=== PATIENT | female | born 2000 | race Hispanic/Latino ===

== ENCOUNTER 2019-11-19 09:58 | Outpatient (CLI) | payer BC ==
--- NOTE | 2019-11-19 11:29 | CT ---
CT ABDOMEN AND PELVIS WITHOUT IV CONTRAST: Date: 11/19/2019 INDICATION: Left flank pain. No comparison. FINDINGS: Lung bases clear. Liver, spleen, and pancreas appear unremarkable on noncontrast study. Gallbladder is mildly distended. No evidence of pericholecystic edema. Some heterogeneity within the gallbladder lumen could represent sludge. Gallstones may not be apparent on CT. Adrenal glands normal. Review of kidneys show moderate left hydronephrosis. There is an obstructing 1.0 cm calcification in the proximal left ureter. There are nonobstructing calculi in the upper collecting structures of the left kidney. There is a 1. 0 cm calculus in the left renal pelvis near the UPJ. There is a 3.0 mm calculus in the lower pole col lecting structures of the left kidney. There are two or three tiny nonobstructing calculi in the upper collecting structures of the right ki dney which measure in the 1-2 mm range. Right ureter is unremarkable. Urinary bladder is mostly contracted, but appears unremarkable. Bowel loops unremarkable. Images through the pelvis show evidence of a right ovarian cyst measuring in the 2.5 cm range. Uterus and adnexa otherwise unremarkable. No free fluid. IMPRESSION: 1. A 1.0 cm obstructing calculus in the proximal left ureter. 2. Nonobstructing calculi in the upper collecting structures of both kidneys as described above. POS: [facility]
== END 2019-11-19 09:59 | disposition home or self-care (01) ==
LOC: BICCT 09:58
PROVIDERS: ATTEND Family Medicine
DX: R10.9 Unspecified abdominal pain (principal); R31.9 Hematuria, unspecified; N20.2 Calculus of kidney with calculus of ureter
CPT/HCPCS: 74176

== ENCOUNTER 2019-11-20 10:35 | Day surgery (SDC) | payer BC ==
[2019-11-20] MEDS ORDERED: Levofloxacin 500 mg/D5W 100 ml Premix Bag ONE (11:47)
[2019-11-20 12:05] LABS: PTT 28.2 SEC (22.9-36.1)
[2019-11-20 12:17] LABS: BHCG - Serum Negative (NEGATIVE); Pregs Control Background? CLEAR/WHITE (CLR/WHITE); Pregs Control Bar Appear? YES (CONTROL BAR)
--- NOTE | 2019-11-20 13:00 | RAD ---
Exam: One view abdomen HISTORY: Preprocedure exam. Renal calculi Correlation: 11/19/2019 CT FINDINGS: Nonspecific bowel gas pattern. No evidence of bowel distention or dilatation. Calcific density projects over the left renal silhouette, measuring 0.8 cm. Calcific density along th e left paraspinal region at the L3 level is presumed to be a ureteral calculus measuring 0.9 cm. No osseous abnormalities IMPRESSION: 1. Left ureteral calculus 2. Left renal calculus.
[2019-11-20] MEDS ORDERED: Midazolam HCl 2 mg/2 ml Vial ONE (13:44)
[2019-11-20] MEDS ORDERED: Fentanyl 100 MCG/2 ML VIAL ONE (13:44)
[2019-11-20] MEDS ORDERED: Lidocaine 2% Jelly 5 ML TUBE ONE (13:45)
--- NOTE | 2019-11-20 14:19 | RAD ---
Exam: Retrograde IVP Comparison none FINDINGS: 2 intraprocedural fluoroscopic images demonstrate retrograde opacification of the left intr arenal and extra renal collecting system. Mild dilatation of the intrarenal collecting system. Left ureteral stent is placed. Proximal pigtail is in the left renal pelvis. Distal pigtails in the urinar y bladder. IMPRESSION: Intraprocedural fluoroscopy as above
[2019-11-20] MEDS ORDERED: Phenazopyridine HCl 97.5 MG TABLET ONE (14:36)
[2019-11-20] MEDS ORDERED: Oxybutynin 5 MG TAB ONE (14:38)
--- NOTE | 2019-11-20 14:42 | OP ---
DATE OF PROCEDURE: 11/20/2019 PREOPERATIVE DIAGNOSES: 1. A 19-year-old female with left ureteral calculi at the level of L3-4, 10 mm; left renal pelvic stone, 10 mm; left lower pole calculi, 3 to 4 mm. 2. Right punctate renal calculi x2. POSTOPERATIVE DIAGNOSES: 1. A 19-year-old female with left ureteral calculi at the level of L3-4, 10 mm; left renal pelvic stone, 10 mm; left lower pole calculi, 3 to 4 mm. 2. Right punctate renal calculi x2. PROCEDURES PERFORMED: Cystoscopy, left retrograde pyelogram, 6 x 22 double-J ureteral stent placement with distal tail in situ. ANESTHESIA: General. COMPLICATIONS: None apparent. DISPOSITION: To recovery room in stable condition INDICATIONS FOR THE PROCEDURE AND HISTORY: Ms. Riggs is a 19-year-old female, who presented to my office today as a work-in due to left flank pain despite pain medication with large left ureteral calculi, renal calculi as above. We discussed options of medical expulsion therapy. However, due to significant discomfort, she desires to proceed with ureteral stent. Risks and complications and indications reviewed including, but not limited to, bleeding, pain, infection, injury to adjacent organs, urosepsis. She has been fully informed that we will proceed with staged ureteroscopy, laser lithotripsy when urine culture finalized. DESCRIPTION OF PROCEDURE: After an informed consent was signed, the patient was taken to the operating room, placed in a dorsal lithotomy position with the genital area prepped and draped in the usual surgical sterile fashion. A 21-Latvian cystoscope was utilized for cystoscopy, which demonstrated normal bladder mucosa. No stones seen within the bladder. The UOs were normal orthotopic position. A 5-Latvian open-ended catheter was utilized to intubate the left UO and a retrograde pyelogram performed. The stones were easily visualized on fluoroscopy. There was evidence of hydronephrosis proximal to the stone and with further retrograde, the stone may have migrated to the left mid to upper pole. A 0.035 Sensor wire was placed into the left upper pole and a 6 x 22 double-J ureteral stent was passed without difficulty. Distal tail was left in situ. Proximal coil was seen in the renal pelvis. Distal coil with adequate redundancy in the bladder was noted. She is discharged with ciprofloxacin, x10 days, tramadol 50 mg 1 to 2, oxybutynin 10 mg one p.o. daily for bladder spasm, Colace 100 mg b.i.d., Azo p.r.n. She will follow up with me next Sunday, if her final urine culture negative, we will proceed with staged ureteroscopy and laser lithotripsy next Sunday. Job ID: [id number]
[2019-11-20] MEDS ORDERED: HYDROcodone/Acetaminophen 5/325 mg Tablet ONE (15:29)
== END 2019-11-20 16:28 | disposition home or self-care (01) ==
LOC: SDC 10:35
PROVIDERS: ATTEND Urology
PROC: 0T768DZ Dilation of Right Ureter with Intraluminal Device, Via Natural or Artificial Opening Endoscopic (ICD-10-PCS; principal; 2019-11-20)
DX: N13.2 Hydronephrosis with renal and ureteral calculous obstruction (principal)
CPT/HCPCS: 36415; 74018; 74420; 84703; 85610; 85730; C1758; C1769; J1956; J2250; J3010

== ENCOUNTER 2019-11-26 06:34 | Day surgery (SDC) | payer BC ==
[2019-11-26] MEDS ORDERED: Iothalamate Meglumine 60% 30 ML VIAL FS ONE (07:42)
[2019-11-26] MEDS ORDERED: Sodium Chloride 0.9% 100 ML ONE (07:59)
[2019-11-26] MEDS ORDERED: cefTRIAXone\\ROCEPHIN 2 GM VIAL ONE (07:59)
--- NOTE | 2019-11-26 08:35 | RAD ---
RADIOGRAPH ABDOMEN 1 VIEW: DATE: 11/26/2019. TIME: 9:00 AM. HISTORY: A 19-year-old female with left calculus of kidney. COMPARISON: 11/20/2019. FINDINGS: There is a new left ureteral stent. The previously mentioned 8 mm calculus remains overlying the lef t renal lower pole shadow. The previously mentioned 9 mm calculus in the left proximal-mid ureter bradley s now been displaced superiorly, and currently is located slightly inferior to the other calculus men tioned above at the left renal lower pole shadow. Bowel gas pattern is normal. IMPRESSION: 1. Interval placement of left ureteral stent. 2. The 9 mm left ureteral calculus has migrated in retrograde fashion into a left renal lower pole c bhumi. 3. The other, 8 mm left renal calculus remains. POS: JIN
[2019-11-26] MEDS ORDERED: Meperidine HCl/PF 25 MG/ML VIAL ONE (08:37)
[2019-11-26] MEDS ORDERED: Fentanyl 100 MCG/2 ML VIAL ONE (08:37)
[2019-11-26] MEDS ORDERED: Famotidine/PF 20 mg/2ml Vial ONE (08:38)
[2019-11-26] MEDS ORDERED: Oxybutynin 5 MG TAB ONE (10:24)
[2019-11-26] MEDS ORDERED: Phenazopyridine HCl 97.5 MG TABLET ONE ×2 (10:25)
--- NOTE | 2019-11-26 10:47 | OP ---
DATE OF PROCEDURE: 11/26/2019 PRIMARY CARE PHYSICIAN: Travis Red MD PREOPERATIVE DIAGNOSES: 1. A 19-year-old female with left 1 cm proximal ureteral calculi, left 1 cm renal pelvic calculi, 3 mm left lower pole stone. 2. A 1-2 mm right mid pole punctate renal calculi. POSTOPERATIVE DIAGNOSES: 1. A 19-year-old female with left 1 cm proximal ureteral calculi, left 1 cm renal pelvic calculi, 3 mm left lower pole stone. 2. A 1-2 mm right mid pole punctate renal calculi. PROCEDURES PERFORMED: Cystoscopy, left retrograde pyelogram, 6 x 22 double-J ureteral stent exchange with distal tail in situ, flexible ureteroscopy, pyeloscopy, laser lithotripsy of multiple stone burden as above, basket extraction of stone fragments, 6 x 22 double-J ureteral stent placement with distal tail in situ. ANESTHESIA: LMA general. COMPLICATIONS: None apparent. DISPOSITION: To recovery room in stable condition. SPECIMEN: Stone for chemical analysis. INDICATIONS FOR THE PROCEDURE AND HISTORY: Ms. Riggs is a 19-year-old female who presented for primary care due to hematuria, flank pain and was provided narcotic pain medication due to nausea, vomiting, pain. Her CAT scan demonstrated multiple left renal and ureteral calculi, large stone burden as above. She underwent ureteral stent placement with significant improvement of her pain and presents today for ureteral stent exchange, stone treatment. She has been fully informed regarding a large stone burden, moreover density of the stone, that she may require secondary procedure given stone burden and density. Questions encouraged and answered. She desires to proceed. Risks and complications of the procedure were reviewed with her in detail including, but not limited to, bleeding, pain, infection, injury to adjacent organs, urosepsis, injury to ureter, renal, bladder. Questions answered to her satisfaction, she desires to proceed. DESCRIPTION OF PROCEDURE: After an informed consent was signed, the patient was taken to the operating room, placed in a dorsal lithotomy position with the genital area prepped and draped in the usual surgical sterile fashion. A 21-Hungarian cystoscope was utilized for cystoscopy, which demonstrated the ureteral stent in good position and this was removed to the level of the meatus. A 0.035 Sensor wire was placed into the left upper pole through the stent and the stent completely removed. A 10-Hungarian dual-lumen access sheath was passed over the wire and a retrograde pyelogram demonstrated the wire in good position with stone that I easily visualized on fluoroscopy. The previous ureteral stone had migrated into the mid pole. At this time, with a dual-lumen in place, we placed a second working wire 0.035 Super Stiff. The dual-lumen access sheath was then removed and an 11/13-Hungarian x 28 cm navigator was passed to the level of the proximal ureter with ease. At this time, a flexible ureteroscope, disposable was passed over the working wire. The stones were easily visualized. A mid to lower pole 3-4 mm stone was seen and two large stone burden in the mid and lower pole respectively. Using 273 micron ball-tip laser fiber at a setting of 1.0-1.2 joules, we laser lithotripsied all the stone burden. The stone was quite dense, we fragmented it into dustlike debris and fragments as well. Using a combination of Zero Tip Nitinol and a Hunter basket , we extracted the larger fragment debris uneventfully. At the end of the procedure, what remained were tiny dustlike debris, punctate stone debris that she will most likely pass on her own. We surveyed the ureter, which demonstrated no evidence of ureteral calculi or ureteral trauma of concern. A 6 x 22 double-J ureteral stent with distal tail was passed without difficulty. All wire, instruments were removed. Good stent placement was seen. The patient will follow up with me, December 03, at 8:30 a.m. for cysto, stent pull. She is to have a KUB, December 02, at 9 a.m. If there is no obvious stone debris of concern, we will proceed with stent thereafter. She is discharged with ciprofloxacin 1 p.o. b.i.d. until followup, Azo p.r.n., oxybutynin 10 mg p.o. daily, tramadol #30, 50 mg. Job ID: [id number] [facility]
--- NOTE | 2019-11-26 12:07 | RAD ---
RETROGRADE IVP: INDICATION: Imaging during a retrograde stay and stent placement. A single fluoroscopic AP projection is present ed. FINDINGS/IMPRESSION: The single image reveals a double pigtail left ureteral stent in place. The stent appears in adequat e position on this single projection. POS: [facility]
[2019-11-26] MEDS ORDERED: Ondansetron PF 4 MG/2 ML Vial ONE (12:12)
[2019-11-26] MEDS ORDERED: Lidocaine 1% PF 5 ML VIAL ONE (12:12)
[2019-11-26] MEDS ORDERED: Metoclopramide HCl 10 MG/2 ML VIAL ONE (12:12)
[2019-11-26] MEDS ORDERED: PROPOFOL 200 MG/20 ML VIAL ONE (12:12)
[2019-11-26] MEDS ORDERED: Rocuronium Bromide 10 MG/ML (10ML VIAL) ONE (12:12)
[2019-11-26] MEDS ORDERED: Glycopyrrolate 0.2 MG/ML 5 ML SYRINGE ONE (12:12)
[2019-11-26] MEDS ORDERED: Dexamethasone 20 MG/5 ML VIAL ONE (12:12)
== END 2019-11-26 11:55 | disposition home or self-care (01) ==
LOC: SDC 06:34
PROVIDERS: ATTEND Urology
PROC: 0T778DZ Dilation of Left Ureter with Intraluminal Device, Via Natural or Artificial Opening Endoscopic (ICD-10-PCS; principal; 2019-11-26)
PROC: 0TC48ZZ Extirpation of Matter from Left Kidney Pelvis, Via Natural or Artificial Opening Endoscopic (ICD-10-PCS; principal; 2019-11-26)
DX: N13.2 Hydronephrosis with renal and ureteral calculous obstruction (principal)
CPT/HCPCS: 74018; 74420; 82365; 88300; C1769; J0696; J1100; J2001; J2175; J2405; J2704; J2765; J3010; J3490; S0028

== ENCOUNTER 2019-12-03 08:27 | Outpatient (CLI) | payer BC ==
--- NOTE | 2019-12-03 10:32 | RAD ---
ABDOMEN 1 VIEW: Date: 12/03/2019 HISTORY: Renal calculi. COMPARISON: 11/26/2019. FINDINGS: Left ureteral stent in place. The two renal calculi noted in the left kidney are no longer evident. T here are probably some small calculi fragments noted in the left kidney. IMPRESSION: Evidence for small calculi fragments in the left kidney. The two larger distinct renal calculi are no longer evident. POS: [facility]
== END 2019-12-03 08:28 | disposition home or self-care (01) ==
LOC: BICRAD 08:27
PROVIDERS: ATTEND Urology
DX: N20.0 Calculus of kidney (principal)
CPT/HCPCS: 74018